=== PATIENT | female | born 1990 | race Caucasian/White ===

== ENCOUNTER 2023-04-20 16:58 | Emergency (ER) | payer OTHER, SELFPAY ==
[2023-04-20 17:13] VITALS: BP 143/84; PULSE 81; RESP 15; TEMP 36.8; O2SAT 98; BMI 41.0
[2023-04-20 18:43] VITALS: BP 89/52; PULSE 83; O2SAT 97
[2023-04-20 18:53] LABS: Basophils % 0.4 %; Eosinophils # 0.2 10^3/uL (0.0-0.8); Eosinophils % 2.6 %; Hematocrit 40.3 % (36-47); Lymphocytes # 2.6 10^3/uL (0.8-4.8); Lymphocytes % 35.4 %; Mean Corpuscular HGB Conc 33.7 g/dL (30-55); Mean Corpuscular Hemoglobin 28.8 pg (27-33); Mean Corpuscular Volume 85.4 fl (85-98); Mean Platelet Volume 8.8 fL (7.4-10.4); Monocytes # 0.5 10^3/uL (0.2-0.9); Monocytes % 6.9 %; Neutrophils # 4.02 10^3/uL (1.8-7.7); Neutrophils % 54.6 %; Nucleated Red Blood Cells % 0 %; Platelet Count 324 10^3/cmm (157-399); Red Blood Count 4.72 10^6/uL (3.85-5.65); White Blood Count 7.37 10^3/uL (3.29-11.43)
[2023-04-20 19:11] LABS: Alanine Aminotransferase 34 U/L (0-33); Albumin Level 4.5 g/dL (3.5-5.2); Alkaline Phosphatase 64 U/L (35-105); Aspartate Amino Transferase 21 U/L (0-32); Blood Urea Nitrogen 12 mg/dL (6-20); Calcium 9.5 mg/dL (8.5-10.5); Carbon Dioxide 23 mmol/L (22-29); Chloride 105 mmol/L (98-107); Globulin 3.2 g/dL (1.3-4.6); Glomerular Filtration Rate 83.7 mL/min (90-130); Glucose 81 mg/dL (65-115); Osmolality Calculated 289 mOsm/kg (285-295); Sodium 140 mmol/L (136-145); Total Bilirubin 0.3 mg/dL (0.15-1.2); Total Protein 7.7 g/dL (6.6-8.7)
[2023-04-20] MEDS: ketorolac 60 mg/2 mL INJ IM (19:46)
[2023-04-20] MEDS: dexamethasone 10 mg/mL INJ IM (19:46)
[2023-04-20 20:29] LABS: Add Urine Microscopic? YES; Bilirubin Urine Neg (Negative); Blood Urine Neg (Negative); Glucose Urine UA Norm (Normal); Ketones Urine Negative (Negative); Leukocyte Esterase Urine 1+ (Negative); Nitrate Urine Negative (Negative); Protein Urine Neg (Negative); Specific Gravity, Urine 1.005 (1.005-1.030); Urine Appearance Clear (CLEAR); Urine Color Light yellow (Yellow); Urobilinogen Urine Norm (Negative); pH Urine 7 (5-7)
[2023-04-20 20:34] LABS: Add Urine Culture? No; Bacteria Urine 1+ /hpf; RBC Urine RARE /hpf (0-2); Squamous Epithelial Cell Urine 0-4 /hpf (0-5); WBC Urine 0-4 /hpf (0-5)
[2023-04-20 20:39] LABS: Amphetamines Screen Urine Negative (Negative); Barbiturates Screen Urine Negative (Negative); Benzodiazepines Screen Urine Negative (Negative); Cocaine Screen Urine Negative (Negative); Opiate Screen Urine Negative (Negative); PCP Screen Urine Negative (Negative); THC Screen Urine Negative (Negative)
--- NOTE | 2023-04-20 21:10 | ED_ITS ---
HPI - Back Pain/Injury General: Chief Complaint: Back Pain/Injury Stated Complaint: back pain, numbness in both legs Time Seen by Provider: 04/20/23 18:15 History of Present Illness: Patient presents to the ER with 1 week history of back pain. Patient woke up with his back pain. Patient has had no known trauma. Patient does have degenerative back disease and had a microdiscectomy approximately couple years ago. Patient gave this 1 week trial to get better on its own. Patient uses diclofenac consistently during this week. Uses hydrocodone on occasion. Patient does state the numbness and tingling goes from her back radiates down the backside of her legs and wraparound to the inside of her thighs. Patient states this is similar to what it happened in the past when she needed a microdiscectomy. Review of Systems General: Reports: 10 or more systems reviewed and unremarkable except in HPI and below PFSH ED PFSH: Medical History Degenerative disc disease at L5-S1 level Physical Exam Const: COMMON NORMALS: no acute distress, average body habitus, patient oriented x3, no limitations, healthy appearing, alert and well nourished HENMT: COMMON NORMALS: normocephalic, atraumatic, hearing grossly normal bilaterally, external ears normal, Normal external nose present, moist oral mucous membranes and oropharynx normal HEAD & SCALP: normocephalic and atraumatic NOSE: Normal external nose present EXTERNAL EAR: Yes external ears normal Eye: COMMON NORMALS: Equal, round and reactive pupils present, EOMs intact bilaterally, conjunctivae normal and no scleral icterus CONJUNCTIVA: Yes conjunctivae normal PUPIL: Yes Equal, round and reactive pupils present Neck/C-Spine: COMMON NORMALS: full ROM, no lymphadenopathy, supple, no menin geal signs, no JVD and Thyroid normal THYROID: Thyroid normal Chest: COMMONS NORMALS: normal inspection of the chest and normal palpation of entire chest wall Resp: COMMON NORMALS: normal respiratory effort, No retractions, No use of accessory muscles and clear to auscultation bilaterally AUSCULTATION: clear to auscultation bilaterally Cardio: COMMON NORMALS: no JVD, regular rate, regular rhythm, S1 normal heart sound present, S2 normal heart sound present, No gallops present (Cardio), No clicks present (Cardio), No murmurs present (Cardio) and No rub (Cardio) RA TE: regular rate RHYTHM: regular rhythm HEART SOUNDS: S1 normal heart sound present and S2 normal heart sound present GI: COMMON NORMALS: Normal to inspection, nondistended, normoactive bowel sounds present, Soft to palpation, non-tender, No hepatosplenomegaly present and no masses PALPATION: Yes Soft to palpation and Yes No hepatosplenomegaly present : COMMON NORMALS: Yes no CVA tenderness BLADDER/KIDNEY EXAM: Yes no CVA tenderness Back/Pelvis: COMMON NORMALS: no CVA tenderness Neuro: COMMON NORMALS: patient oriented x3 SENSORIUM/ORIENTATION: Yes alert MENINGEAL SIGNS: Yes no meningeal signs Course Vital Signs: Vital signs: Vital Signs Temperature 98.2 F 04/20/23 17:13 Pulse Rate 83 04/20/23 18:43 Respiratory Rate 15 04/20/23 17:13 Blood Pressure 89/52 04/20/23 18:43 Pulse Oximetry 97 04/20/23 18:43 Oxygen Delivery Me thod Room Air 04/20/23 18:43 MDM - Back Pain/Injury Medical Decision Making Patient presented to the ER with complaints of low back pain with radiculopathy bilaterally. Patient has had this in the past. Patient has no known trauma. Patient did improve with Solu-Medrol and Toradol. Patient be discharged home with prednisone and is to continue her diclofenac. Patient should follow-up with her PCP on an as-needed basis peripherally for the next 7 to 10 days for further evaluation and treatment. Differential Diagnosis Likely lumbar radiculopathy; Unlikely sciatica, strain of lumbar region, renal colic, pyelonephritis, thoracic back pain, AAA or discitis Medical Records I reviewed the patient's medical records. Labs I reviewed the patient's lab results. 04/20/23 18:39 04/20/23 18:39 Laboratory Results WBC 7.37 10^3/uL (3.29-11.43) 04/20/23 18:39 RBC 4.72 10^6/uL (3.85-5.65) 04/20/23 18:39 Hgb 13.60 g/dL (11.27-16.99) 04/20/23 18:39 Hct 40.3 % (36-47) 04/20/23 18:39 MCV 85.4 fl (85-98) 04/20/23 18:39 MCH 28.8 pg (27-33) 04/20/23 18:39 MCHC 33.7 g/dL (30-55) 04/20/23 18:39 RDW 12.0 % (12.1-15.1) L 04/20/23 18:39 Plt Count 324 10^3/cmm (157-399) 04/20/23 18:39 MPV 8.8 fL (7.4-10.4) 04/20/23 18:39 Neut % (Auto) 54.6 % 04/20/23 18:39 Lymph % (Auto) 35.4 % 04/20/23 18:39 [place] % (Auto) 6.9 % 04/20/23 18:39 Eos % (Auto) 2.6 % 04/20/23 18:39 Baso % (Auto) 0.4 % 04/20/23 18:39 Neut # (Auto) 4.02 10^3/uL (1.8-7.7) 04/20/23 18:39 Lymph # (Auto) 2.6 10^3/uL (0.8-4.8) 04/20/23 18:39 [place] # (Auto) 0.5 10^3/uL (0.2-0.9) 04/20/23 18:39 Eos # (Auto) 0.2 10^3/uL (0.0-0.8) 04/20/23 18:39 Baso # (Auto) 0.0 10^3/uL (0.0-0.1) 04/20/23 18:39 Nucleated RBC % (auto) 0 % 04/20/23 18:39 Nucleated RBCs # 0.0 /100WBC 04/20/23 18:39 Sodium 140 mmol/L (136-145) 04/20/23 18:39 Potassium 4.0 mmol/L (3.5-5.1) 04/20/23 18:39 Chloride 105 mmol/L (98-107) 04/20/23 18:39 Carbon Dioxide 23 mmol/L (22-29) 04/20/23 18:39 Anion Gap 16.0 (5-19) 04/20/23 18:39 BUN 12 mg/dL (6-20) 04/20/23 18:39 Creatinine 0.8 mg/dL (0.5-0.9) 04/20/23 18:39 GFR Calculation 83.7 mL/min (90-130) L 04/20/23 18:39 Glucose 81 mg/dL (65-115) 04/20/23 18:39 Calculated Osmolality 289 mOsm/kg (285-295) 04/20/23 18:39 Calcium 9.5 mg/dL (8.5-10.5) 04/20/23 18:39 Total Bilirubin 0.3 mg/dL (0.15-1.2) 04/20/23 18:39 AST 21 U/L (0-32) 04/20/23 18:39 ALT 34 U/L (0-33) H 04/20/23 18:39 Alkaline Phosphatase 64 U/L (35-105) 04/20/23 18:39 C-Reactive Protein 3.0 mg/L (0.0-4.9) 04/20/23 18:39 Total Protein 7.7 g/dL (6.6-8.7) 04/20/23 18:39 Albumin 4.5 g/dL (3.5-5.2) 04/20/23 18:39 Globulin 3.2 g/dL (1.3-4.6) 04/20/23 18:39 Urine Color Light yellow (Yellow) 04/20/23 19:43 Urine Appearance Clear (CLEAR) 04/20/23 19:43 Urine pH 7 (5-7) 04/20/23 19:43 Ur Specific [place] 1.005 (1.005-1.030) 04/20/23 19:43 Urine Protein Neg (Negative) 04/20/23 19:43 Urine Glucose (UA) Norm (Normal) 04/20/23 19:43 Urine Ketones Negative (Negative) 04/20/23 19:43 Urine Blood Neg (Negative) 04/20/23 19:43 Urine Nitrate Negative (Negative) 04/20/23 19:43 Urine Bilirubin Neg (Negative) 04/20/23 19:43 Urine Urobilinogen Norm mg/dL (Negative) 04/20/23 19:43 Ur Leukocyte Esterase 1+ (Negative) H 04/20/23 19:43 Urine RBC Rare /hpf (0-2) 04/20/23 19:43 Urine WBC 0-4 /hpf (0-5) H 04/20/23 19:43 Ur Squamous Epith Cells 0-4 /hpf (0-5) H 04/20/23 19:43 Amorphous Sediment Not Reportable 04/20/23 19:43 Urine Bacteria 1+ /hpf (NONE) H 04/20/23 19:43 Urine Mucus None /hpf 04/20/23 19:43 Urine Opiates Screen Negative ng/mL (Negative) 04/20/23 19:43 Ur Barbiturates Screen Negative ng/mL (Negative) 04/20/23 19:43 Ur Phencyclidine Scrn Negative ng/mL (Negative) 04/20/23 19:43 Ur Amphetamines Screen Negative ng/mL (Negative) 04/20/23 19:43 U Benzodiazepines Scrn Negative ng/mL (Negative) 04/20/23 19:43 Urine Cocaine Screen Negative ng/mL (Negative) 04/20/23 19:43 U Marijuana (THC) Screen Negative ng/mL (Negative) 04/20/23 19:43 No radiology studies performed this visit Discharge Plan Discharge Patient Disposition: Home Clinical Impression: Lumbar radiculopathy Condition: Stable Prescriptions: New prednisone 50 mg tablet 50 mg PO DAILY 5 Days Qty: 5 0RF No Action hydrocodone-acetaminophen 7.5-325 mg tablet 1 tab PO Q8H PRN (Reason: pain) 6 Days Qty: 18 0RF cetirizine [Zyrtec] 10 mg tablet 10 mg PO DAILY PRN prednisone 20 mg tablet 60 mg PO DAILY 5 Days Qty: 15 0RF diclofenac sodium 75 mg tablet,delayed release (DR/EC) 75 mg PO BID Qty: 60 1RF Discharge Orders: Discharge ED (Routine); Ordered 04/20/23 Ordered By: Will Guzmán Patient Instructions: Lumbar Radiculopathy (ED), Lower Back Exercises (ED), Pain Management Activity Restrictions/Additional Instructions: Please continue your diclofenac as previously prescribed. Please continue your prednisone as prescribed. Please follow-up with your family practice physician in the next 7 to 10 days for further evaluation and treatment. Coding Level of Care Code ED Clothing Presser for Pilar Perez
[2023-04-20 21:31] VITALS: PULSE 83; O2SAT 97
== END 2023-04-20 21:31 | disposition home or self-care (01) ==
PROVIDERS: Emergency Provider Emergency Medicine
DX: M54.16 Radiculopathy, lumbar region (principal)
CPT/HCPCS: 36415; 80053; 80306; 81001; 85025; 86140; 96372; 99284; J1100; J1885

== ENCOUNTER 2023-05-14 09:16 | Outpatient (CLI) | payer OTHER, SELFPAY ==
--- NOTE | 2023-05-14 09:30 | MR_ITS ---
WS: [id number] MRI LUMBAR SPINE NONCONTRAST TECHNIQUE: Sagittal T1, T2 and STIR imaging. Axial T1 and T2 imaging. CLINICAL INFORMATION: low back pain with bilateral sciatica COMPARISON: None. FINDINGS: Mild lumbar curve. No acute compression. No high-grade central canal stenosis. L1-L2: Normal. L2-L3: Mild facet arthropathy. Spinal canal and foramen are patent. L3-L4: No significant disc bulging. Mild facet arthropathy. Spinal canal and foramen are patent. L4-L5: Mild annular bulging. Tiny annular fissure. Slight effacement of the ventral thecal sac. Mild facet arthropathy. Spinal canal and foramen are patent. L5-S1: Mild disc bulge with endplate degenerative changes. Mild facet arthropathy. Spinal canal and f oramen are patent. Visualized pelvic bony structures: Normal. Paravertebral soft tissues: Normal. IMPRESSION: 1. Mild lumbar curve. No acute compression. No high-grade central canal stenosis. 2. Mild annular bulging L4-5 with a tiny annular fissure. Slight effacement of the ventral thecal sa c. 3. Disc space narrowing L5-S1 with endplate degenerative changes. Spinal canal and foramen are paten t at this level. 4. Mild facet arthropathy L3-L5.
== END 2023-05-14 09:17 | disposition home or self-care (01) ==
LOC: RAD 09:17
PROVIDERS: PCP Family Medicine; Visit Provider Family Medicine
DX: M51.37 Other intervertebral disc degeneration, lumbosacral region (principal); M47.817 Spondylosis without myelopathy or radiculopathy, lumbosacral region
CPT/HCPCS: 72148

== ENCOUNTER → 2023-05-18 09:56 | Outpatient (BNVA) | payer OTHER, SELFPAY | PROVIDERS: PCP Family Medicine; Visit Provider Physician Assistant | DX: M51.37 Other intervertebral disc degeneration, lumbosacral region (principal) | CPT/HCPCS: 72100 ==

== ENCOUNTER 2023-06-10 12:25 | Outpatient (RCR) | payer OTHER, SELFPAY | END 2023-06-30 23:59 | disposition home or self-care (01) | LOC: SPT 12:25 | PROVIDERS: PCP Family Medicine; Visit Provider Physician Assistant | DX: M54.50 Low back pain, unspecified (principal) | CPT/HCPCS: 97110; 97161 ==

== ENCOUNTER 2023-07-01 06:00 | Outpatient (RCR) | payer OTHER, SELFPAY | END 2023-07-08 23:59 | disposition home or self-care (01) | LOC: SPT 06:00 | PROVIDERS: PCP Family Medicine; Visit Provider Physician Assistant | DX: M54.50 Low back pain, unspecified (principal) | CPT/HCPCS: 97110 ==

== ENCOUNTER → 2023-12-16 08:48 | Outpatient (BNVA) | payer OTHER, SELFPAY | PROVIDERS: PCP Family Medicine; Visit Provider Family Medicine Adult Medicine | DX: Z00.00 Encounter for general adult medical examination without abnormal findings (principal); Z68.41 Body mass index [BMI] 40.0-44.9, adult; G43.111 Migraine with aura, intractable, with status migrainosus; M51.36 Other intervertebral disc degeneration, lumbar region; Z76.89 Persons encountering health services in other specified circumstances | CPT/HCPCS: 80053; 80061; 84443; 85025; 85651 ==

== ENCOUNTER 2024-01-12 16:25 | Emergency (ER) | payer OTHER, SELFPAY ==
[2024-01-12 16:55] VITALS: BP 134/81; PULSE 91; RESP 18; TEMP 36.7; O2SAT 100; BMI 40.3
--- NOTE | 2024-01-12 17:13 | ED_ITS ---
HPI - Headache General: Chief Complaint: Headache Stated Complaint: Migraine Time Seen by Provider: 01/12/24 17:01 Source: patient Mode of arrival: ambulatory Limitations: no limitations History of Present Illness: This patient made aware to the emergency department today because of persistent headache. She states this headache began Wednesday evening onset typical like her usual migraine headaches left-sided gradual onset and did not respond to her usual migraine medications. She has had migraines for many years and has normally controlled and fairly well with Topamax and Maxalt. She denies any fevers chills or other contributing factors. She states that she has nauseated but has not vomited with his headaches. She has some mild tingling in her left face but otherwise no other symptoms other than the nausea. She states otherwise is very typical with with light and noise contributing to her headaches. She states she is very sensitive to caffeine and has to walk a fine line between drinking too much or not enough. She states there is a strong family history of migraine headaches both in her grandmother and her mother. No other associated symptoms. This 1 is different and that is lasted longer than her typical headaches. MD elicited complaint: migraine Location: left Severity: similar to previous episodes Relieving factors: nothing Associated symptoms: Reports nausea; Deny fever(s), pre-syncope, rash, syncope or vomiting Related Data Home Medications Medication Instructions Recorded Confirmed cetirizine 10 mg tablet (Zyrtec) 10 mg PO DAILY PRN 12/03/22 01/11/24 norethindrone acetate 5 mg tablet 10 mg PO DAILY 05/07/23 01/11/24 hydroxyzine HCl 25 mg tablet 25 mg PO BID PRN 06/10/23 01/11/24 levonorgestrel 21 mcg/24 hr (up to intrauterine 06/10/23 01/11/24 8 years) 52 mg intrauterine device (Mirena) Previous Rx's Medication Instructions Recorded diclofenac sodium 75 mg 75 mg PO BID #60 tabs 05/07/23 tablet,delayed release rizatriptan 10 mg tablet (Maxalt) See Rx Instructions PO .COMPLEX #9 10/26/23 tabs bupropion HCl 150 mg tablet,12 hr 150 mg PO QAM #30 tabs 12/16/23 sustained-release topiramate 50 mg tablet (Topamax) 50 mg PO BID #180 tabs 12/23/23 Allergies Allergy/AdvReac Type Severity Reaction Status Date / Time shellfish derived Allergy Severe Unknown Verified 01/11/24 16:05 SEAFOOD Allergy Severe Unknown Uncoded 01/11/24 16:05 Review of Systems Const: Denies: fever(s) or chills Eyes: Reports: photophobia; Denies: change in vision or blurry vision ENMT: Denies: throat pain, odynophagia, nasal discharge or nasal congestion Card: Denies: palpitations, syncope or pre-syncope Resp: Denies: productive cough or non-productive cough GI: Reports: nausea; Denies: vomiting Musc: Denies: neck pain, back pain, extremity pain or extremity swelling Skin/Breast: Denies: rash Neuro: Reports: headache(s); Denies: numbness in extremities, weakness in extremities or dizziness PFSH ED PFSH: Medical History BMI 40.0-44.9, adult Preventative health care History of migraine with aura Endometriosis Degenerative disc disease at L5-S1 level Surgical History History of laparoscopy History of spinal surgery Microdiscectomy L5-S1 2020 Family History Father Diabetes Mother Pituitary tumor Social History Smoking and tobacco/nicotine status: never used tobacco/nicotine Alcohol intake: never Substance/Drug Use: never Lives independently: No Household members: family Highest education level completed: Bachelor's Degree Physical Exam Narrative: EXAM NARRATIVE: She is lying in bed and answers questions in an appropriate fashion smiles at times but is clearly uncomfortable and photophobic. Const: COMMON NORMALS: patient oriented x3, alert and well nourished GENERAL APPEARANCE: cooperative HENMT: COMMON NORMALS: normocephalic, atraumatic, moist oral mucous membranes and oropharynx normal HEAD & SCALP: normocephalic and atraumatic; no scalp tenderness and no Temporal artery tenderness present FACE & SINUS: normal facial exam and face symmetric Eye: COMMON NORMALS: Equal, round and reactive pupils present, EOMs intact bilaterally and conjunctivae normal CONJUNCTIVA: Yes conjunctivae normal PUPIL: Yes Equal, round and reactive pupils present Neck/C-Spine: COMMON NORMALS: full ROM, no lymphadenopathy and no meningeal signs CERVICAL SPINE: Yes cervical ROM normal, No Cervical spine tenderness, No Paracervical muscle tenderness, No Paracervical spasm and No Trapezius muscle tenderness Resp: COMMON NORMALS: normal respiratory effort, clear to auscultation bilaterally and percussion normal AUSCULTATION: clear to auscultation bilaterally PERCUSSION: percussion normal Cardio: COMMON NORMALS: regular rate, regular rhythm, No murmurs present (Cardio) and Peripheral pulses 2+ throughout RATE: regular rate RHYTHM: regular rhythm PERIPHERAL PULSES: Peripheral pulses 2+ throughout GI: COMMON NORMALS: Normal to inspection, nondistended, normoactive bowel sounds present Back/Pelvis: COMMON NORMALS: thoracic and lumbar spine normal to inspection, no thoracic nor lumbar tenderness and thoraco-lumbar ROM normal Extremity: COMMON NORMALS: normal to inspection, full ROM, capillary refill normal and no calf tenderness Neuro: COMMON NORMALS: patient oriented x3, moves all extremities, no focal motor deficits and no sensory deficits noted SENSORIUM/ORIENTATION: Yes alert MENINGEAL SIGNS: Yes no meningeal signs CRANIAL NERVES: Yes CN normal except as noted Psych: COMMON NORMALS: mental status grossly normal Skin: COMMON NORMALS: no rashes or lesions noted, no wounds, turgor normal and no petechiae GENERAL SKIN EXAM: no rashes or lesions noted and turgor normal Course Reevaluation(s): Reevaluation #1: Patient was reevaluated. She is smiling and happy and very pleased that her headache is responded to therapy. We discussed lack of indication at this time of any serious secondary headache. She is stable and desires to be discharged home. We discussed return precautions as well. Time: 18:20 Vital Signs: Vital signs: Vital Signs Temperature 98.1 F 01/12/24 16:55 Pulse Rate 91 01/12/24 16:55 Respiratory Rate 18 01/12/24 16:55 Blood Pressure 134/81 01/12/24 16:55 Pulse Oximetry 100 01/12/24 16:55 Oxygen Delivery Me thod Room Air 01/12/24 16:55 MDM - Headache Medical Decision Making The patient presented as noted in the history of present illness. Longstanding history of headaches with an onset of current headache similar to that which she is experienced in the past. The predominant difference was the duration of her headache and the nonresponse to her usual medications at home. There was no concomitant fevers trauma associated focal neurologic symptoms except for that suggested a worrisome condition. Her clinical examination revealed her to be photophobic but with a nonfocal neurologic examination and no evidence of any other findings to suggest possible infectious etiology etc. Consistent with a prolonged migraine headache. She was treated with migraine cocktail to include IV fluids, Reglan, diphenhydramine, dexamethasone and her symptoms resolved. Reevaluation revealed a reassuring examination. Unlikely to be a worrisome secondary headache and stable for discharge at this time with return precautions. No radiology studies performed this visit Discharge Plan Discharge Patient Disposition: Home Clinical Impression: Migraine Condition: Stable Prescriptions: No Action norethindrone acetate 5 mg tablet 10 mg PO DAILY diclofenac sodium 75 mg tablet,delayed release (DR/EC) 75 mg PO BID Qty: 60 1RF cetirizine [Zyrtec] 10 mg tablet 10 mg PO DAILY PRN hydroxyzine HCl 25 mg tablet 25 mg PO BID PRN Mirena 21 mcg/24 hours (8 yrs) 52 mg intrauterine device intrauterine rizatriptan [Maxalt] 10 mg tablet See Rx Instructions PO .COMPLEX Qty: 9 1RF Rx Instructions: take 1 tab at onset of headache; if no relief may repeat 1 tab after at least 2 hrs; max = 3 tabs/24 hr PO bupropion HCl 150 mg tablet sustained-release 12 hr 150 mg PO QAM Qty: 30 1RF topiramate [Topamax] 50 mg tablet 50 mg PO BID Qty: 180 1RF Discharge Orders: Discharge ED (Routine); Ordered 01/12/24 Ordered By: Austen Barr Referrals: Hamzah Wallace MD [Primary Care Provider] - Discharge Diet: Usual diet Discharge Activity: Increase activity as tolerated Patient Instructions: Opioid Safety, Pain Management Activity Restrictions/Additional Instructions: As we discussed your headache responded to our therapy in the emergency department. Your headache was consistent with prior headaches and at this point does not represent a serious condition however should your headache return, change in character and or otherwise become concerning to you return to this or the nearest emergency department for reevaluation. Coding Level of Care Code ED Salmon Gillnet Vessel Operator for Pilar Perez
[2024-01-12] MEDS: sodium chloride 0.9% 1,000 ML 999 ML IV (17:41)
[2024-01-12] MEDS: metoclopramide 5 mg/mL SDV 2 mL 10 MG IVP (17:41)
[2024-01-12] MEDS: diphenhydrAMINE 50 mg/mL SDV 1mL 25 MG IVP (17:41)
[2024-01-12] MEDS: dexamethasone 10 mg/mL INJ IVP (17:41)
[2024-01-12 18:31] VITALS: BP 111/65
== END 2024-01-12 19:00 | disposition home or self-care (01) ==
PROVIDERS: Emergency Provider Emergency Medicine; PCP Family Medicine Adult Medicine
DX: G43.909 Migraine, unspecified, not intractable, without status migrainosus (principal)
CPT/HCPCS: 96374; 96375; 99284; J1100; J1200; J2765; J7030

== ENCOUNTER → 2024-06-07 12:33 | Outpatient (BNVA) | payer BC, MEDICAID, SELFPAY | PROVIDERS: PCP Family Medicine Adult Medicine; Visit Provider Psychiatry & Neurology Neurology | DX: G43.111 Migraine with aura, intractable, with status migrainosus (principal); E78.5 Hyperlipidemia, unspecified | CPT/HCPCS: 36415; 82306; 82607; 82746; 83735; 84439; 84443; 84481 ==

== ENCOUNTER 2024-06-15 09:23 | Outpatient (CLI) | payer BC, MEDICAID, SELFPAY ==
--- NOTE | 2024-06-15 09:30 | MR_ITS ---
WS: [id number] MRI BRAIN WITH AND WITHOUT CONTRAST HISTORY: G43.111 - Migraine with aura, intractable, with status mi... COMPARISON: None available. TECHNIQUE: Multiplanar imaging performed through the brain with MultiHance 20 ml's IV. No acute infarcts are seen. Cardoso-white matter differentiation is well preserved. Seen best on the axi al and sagittal T1 sequences there is a curvilinear bright hyperintense area coursing along the splen ium of the corpus callosum. This is consistent with a very small, thin lipoma. No susceptibility artifacts or prior lacunar infarcts. Ventricles and extra-axial spaces are normal. Clivus and pituitary gland are normal. Visualized posterior fossa and brainstem are also normal. Postcontrast images are negative for masses or vascular malformations. Dural venous sinuses are normal. Paranasal sinuses: Well aerated with no significant disease. Mastoid air cells: Normal. Calvarium and scalp: Normal. MR/MR head wo/w con [id number] IMPRESSION: 1. No acute diffusion abnormality or infarct. No prior infarct. 2. No enhancing masses or vascular malformations. 3. Normal hippocampal formation. 4. 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
[2024-06-15] MEDS: gadobenate dimeglumine 20 mL vial IV (10:04)
== END 2024-06-15 09:24 | disposition home or self-care (01) ==
LOC: RAD 09:24
PROVIDERS: PCP Family Medicine Adult Medicine; Visit Provider Psychiatry & Neurology Neurology
DX: G43.111 Migraine with aura, intractable, with status migrainosus (principal); E78.5 Hyperlipidemia, unspecified; R93.89 Abnormal findings on diagnostic imaging of other specified body structures
CPT/HCPCS: 70553